=== PATIENT | male | born 1965 ===

== ENCOUNTER 2018-05-13 07:09 | Day surgery (SDC) | payer BC ==
[~2018-05-13] VITALS: Ht 172.7 cm; Wt 72.6 kg
[2018-05-13] MEDS ORDERED: NKM (07:20)
[2018-05-13] MEDS ORDERED: Sodium Chloride 500ML 500 ML IV ONE (07:30)
[2018-05-13 07:40] VITALS: BP 121/71
--- NOTE | 2018-05-13 07:40 | NUR ---
ED Nurse Note:pt. came with right eye retinal detachement, visual acuity done and documented, pt. will have outpatient surgery done today he is NPO blood was sent to labs and given IV fluids
--- NOTE | 2018-05-13 07:47 | Emergency Room Report ---
History of Present Illness General Chief Complaint: Eye Problems Source: Patient Present Illness HPI Patient presents with complaints of right eye discomfort Some change in acuity Patient reports that approximately 2 weeks ago he started noticing the change Denies any acute trauma Denies any pain however there is some irritation to the eye Denies any head injury denies any chest pain or shortness of breath Denies any back or flank pain denies any vomiting denies any headache Allergies: Coded Allergies: No Known Allergies (Unverified , 05/13/18) Patient History Past Medical History: see triage record Pertinent Family History: none Reviewed Nursing Documentation: PMH: Agreed; PSxH: Agreed Nursing Documentation-PM Past Medical History: No Stated History Review of Systems All Other Systems: negative except mentioned in HPI Physical Exam Vital Signs Date Time Temp Pulse Resp B/P (MAP) Pulse Ox O2 Delivery O2 Flow Rate FiO2 05/13/18 07:12 98.1 60 15 121/71 99 Sp02 EP Interpretation: reviewed, normal General Appearance: well appearing, no apparent distress Head: normocephalic, atraumatic Eyes: right eye other - Detached retina; bilateral eye EOMI ENT: hearing grossly normal, normal pharynx Respiratory: lungs clear, no retraction Cardiovascular #1: regular rate, rhythm Gastrointestinal: non tender, soft Musculoskeletal: normal inspection, back normal Neurologic: alert, oriented x3 Skin: normal inspection, normal color Lymphatic: no adenopathy Medical Decision Making Diagnostic Impression: Primary Impression: Retinal detachment ER Course Patient has findings consistent with retinal detachment Case was discussed with the patient's ceo & founder Patient was requested for acute intervention with surgery And process initiated for this Labs Test 05/13/18 07:48 White Blood Count 7.0 K/UL (4.8-10.8) Red Blood Count 5.60 M/UL (4.70-6.10) Hemoglobin 16.4 G/DL (14.2-18.0) Hematocrit 49.0 % (42.0-52.0) Mean Corpuscular Volume 87 FL (80-99) Mean Corpuscular Hemoglobin 29.2 PG (27.0-31.0) Mean Corpuscular Hemoglobin Concent 33.4 G/DL (32.0-36.0) Red Cell Distribution Width 12.2 % (11.6-14.8) Platelet Count 220 K/UL (150-450) Mean Platelet Volume 7.6 FL (6.5-10.1) Neutrophils (%) (Auto) 66.6 % (45.0-75.0) Lymphocytes (%) (Auto) 25.0 % (20.0-45.0) Monocytes (%) (Auto) 6.5 % (1.0-10.0) Eosinophils (%) (Auto) 1.3 % (0.0-3.0) Basophils (%) (Auto) 0.6 % (0.0-2.0) Prothrombin Time 10.5 SEC (9.30-11.50) Prothromb Time International Ratio 1.0 (0.9-1.1) Activated Partial Thromboplast Time 28 SEC (23-33) Sodium Level 139 MMOL/L (136-145) Potassium Level 4.4 MMOL/L (3.5-5.1) Chloride Level 104 MMOL/L (98-107) Carbon Dioxide Level 28 MMOL/L (21-32) Anion Gap 7 mmol/L (5-15) Blood Urea Nitrogen 21 mg/dL (7-18) Creatinine 0.9 MG/DL (0.55-1.30) Estimat Glomerular Filtration Rate > 60 mL/min (>60) Glucose Level 96 MG/DL (74-106) Calcium Level 9.3 MG/DL (8.5-10.1) Total Bilirubin 0.5 MG/DL (0.2-1.0) Aspartate Amino Transf (AST/SGOT) 16 U/L (15-37) Alanine Aminotransferase (ALT/SGPT) 29 U/L (12-78) Alkaline Phosphatase 73 U/L (46-116) Total Creatine Kinase 56 U/L (26-308) Creatine Kinase MB 1.0 NG/ML (0.0-3.6) Creatine Kinase MB Relative Index 1.7 Total Protein 7.8 G/DL (6.4-8.2) Albumin 4.1 G/DL (3.4-5.0) Globulin 3.7 g/dL Albumin/Globulin Ratio 1.1 (1.0-2.7) EKG Diagnostic Results Rate: bradycardiac Rhythm: other ST Segments: no acute changes Rhythm Strip Diag. Results EP Interpretation: yes Rate: 55 Rhythm: no PVC's, no ectopy, other - Bradycardia Last Vital Signs Date Time Temp Pulse Resp B/P (MAP) Pulse Ox O2 Delivery O2 Flow Rate FiO2 05/13/18 07:40 98.1 76 15 121/71 99 Status: improved Disposition: HOME, SELF-CARE Condition: Improved Referrals: NOT CHOSEN IPA/,REFERRING (PCP) Additional Instructions: Patient disposition to the OR and was reported that the patient would have disposition home after intervention, Stephany Weeks DO May 13, 2018 07:47
[2018-05-13] MEDS ORDERED: Lidocaine 2% MPF 5ml Vial INJ ONE (08:04)
[2018-05-13] MEDS ORDERED: Dexamethasone 4mg/ml vial ONE (08:04)
[2018-05-13] MEDS ORDERED: Sterile Water For Inj 1000ml IV ONE (08:04)
[2018-05-13] MEDS ORDERED: LR 1000ml ONE (08:04)
[2018-05-13] MEDS ORDERED: Pred Forte 1% Opth Susp 1ml ONE (08:04)
[2018-05-13] MEDS ORDERED: Atropine Sulfate 0.4mg/ml inj 20ML ONE (08:04)
[2018-05-13] MEDS ORDERED: Maxitrol Opth Oint 3.5gm ONE (08:04)
[2018-05-13] MEDS ORDERED: Povidone-Iodine 5% opth solution ONE (08:04)
[2018-05-13] MEDS ORDERED: BSS 500ml btl ONE (08:04)
[2018-05-13] MEDS ORDERED: BSS 15ml BTL ONE (08:04)
[2018-05-13] MEDS ORDERED: Kenalog-40 1ml Vial ONE (08:04)
[2018-05-13] MEDS ORDERED: Goniotaire 2.5% Opth Soln - 15ml ONE (08:04)
[2018-05-13] MEDS ORDERED: NS Irrig 1000ml ONE (08:04)
[2018-05-13] MEDS ORDERED: Bupivacaine 0.75% 30ml vial INJ ONE (08:04)
[2018-05-13] MEDS ORDERED: Tetracaine 0.5% Opth 4ml Soln ONE (08:04)
[2018-05-13 08:14] LABS: BASOPHILS % (AUTO) 0.6 % (0.0-2.0); EOSINOPHILS % (AUTO) 1.3 % (0.0-3.0); HEMOGLOBIN 16.4 G/DL (14.2-18.0); MEAN CORPUSCULAR VOLUME 87 FL (80-99); MONOCYTES % (AUTO) 6.5 % (1.0-10.0); NEUTROPHILS % (AUTO) 66.6 % (45.0-75.0); PLATELET COUNT 220 K/UL (150-450); RED CELL DISTRIBUTION WIDTH 12.2 % (11.6-14.8)
[2018-05-13 08:25] LABS: ANION GAP 7 mmol/L (5-15); BLOOD UREA NITROGEN 21 mg/dL (7-18); CALCIUM 9.3 MG/DL (8.5-10.1); CARBON DIOXIDE 28 MMOL/L (21-32); CHLORIDE 104 MMOL/L (98-107); CREATININE 0.9 MG/DL (0.55-1.30); POTASSIUM 4.4 MMOL/L (3.5-5.1); SODIUM 139 MMOL/L (136-145)
[2018-05-13 08:40] LABS: ALANINE AMINOTRANSFERASE 29 U/L (12-78); ALBUMIN 4.1 G/DL (3.4-5.0); ALBUMIN/GLOBULIN RATIO 1.1 (1.0-2.7); ALKALINE PHOSPHATASE 73 U/L (46-116); ASPARTATE AMINO TRANSFERASE 16 U/L (15-37); BILIRUBIN,TOTAL 0.5 MG/DL (0.2-1.0); CREATINE KINASE 56 U/L (26-308)
--- NOTE | 2018-05-13 09:09 | NUR ---
ED Nurse Note:pt. is resting condition stable, waiting for surgecal availability
[2018-05-13] MEDS ORDERED: Proparacaine 0.5% Opth Soln 15ml RIGHT EYE ONE (09:15)
[2018-05-13] MEDS ORDERED: Phenylephrine 2.5% Op 2ml Soln RIGHT EYE ONE (09:15)
[2018-05-13] MEDS ORDERED: Tropicamide 1% Opth 15ml Soln RIGHT EYE ONE (09:15)
[2018-05-13 10:00] VITALS: BP 122/71
--- NOTE | 2018-05-13 11:01 | NUR ---
ED Nurse Note:pt. was taken to OR room by transporter condition stable
--- NOTE | 2018-05-13 11:38 | Anethesia Preoperative Eval ---
Anesthesia Pre-op PMH/ROS General Date of Evaluation: May 13, 2018 Anesthesiologist: Lefty ASA Score: ASA 1 - E Mallampati Score Class I : Soft palate, uvula, fauces, pillars visible Class II: Soft palate, uvula, fauces visible Class III: Soft palate, base of uvula visible Class IV: Only hard plate visible Mallampati Classification: Class II Surgeon: Yasmin Diagnosis: Right eye retinal detachment Surgical Procedure: Right eye vitrectomy Anesthesia History: none Family History: no anesthesia problems Allergies: Coded Allergies: No Known Allergies (Unverified , 05/13/18) Medications: see eMAR Patient NPO?: Yes NPO Date: May 13, 2018 NPO Time: 22:00 Past Medical History Cardiovascular: Denies: HTN, CAD, [place], valve dz, arrhythmia, other Pulmonary: Denies: asthma, COPD, ELENITA, other Gastrointestinal/Genitourinary: Denies: GERD, CRI, ESRD, other Neurologic/Psychiatric: Denies: dementia, CVA, depression/anxiety, TIA, other Endocrine: Denies: DM, hypothyroidism, steroids, other HEENT: Denies: cataract (L), cataract (R), glaucoma, [place] (L), [place] (R), other Hematology/Immune: Denies: anemia, DVT, bleeding disorder, other Musculoskeletal/Integumentary: Denies: OA, RA, DJD, DDD, edema, other PSxH Narrative: Denies Anesthesia Pre-op Phys. Exam Physician Exam Last Vital Signs Date Time Temp Pulse Resp B/P (MAP) Pulse Ox O2 Delivery O2 Flow Rate FiO2 05/13/18 10:59 98.1 72 18 122/71 99 Constitutional: NAD Cardiovascular: RRR Respiratory: CTA Airway Exam Mallampati Score: Class II MO: full ROM: full Teeth: intact Anesthesia Pre-op A/P Labs Hematology Test 05/13/18 07:48 White Blood Count 7.0 K/UL (4.8-10.8) Red Blood Count 5.60 M/UL (4.70-6.10) Hemoglobin 16.4 G/DL (14.2-18.0) Hematocrit 49.0 % (42.0-52.0) Mean Corpuscular Volume 87 FL (80-99) Mean Corpuscular Hemoglobin 29.2 PG (27.0-31.0) Mean Corpuscular Hemoglobin Concent 33.4 G/DL (32.0-36.0) Red Cell Distribution Width 12.2 % (11.6-14.8) Platelet Count 220 K/UL (150-450) Mean Platelet Volume 7.6 FL (6.5-10.1) Neutrophils (%) (Auto) 66.6 % (45.0-75.0) Lymphocytes (%) (Auto) 25.0 % (20.0-45.0) Monocytes (%) (Auto) 6.5 % (1.0-10.0) Eosinophils (%) (Auto) 1.3 % (0.0-3.0) Basophils (%) (Auto) 0.6 % (0.0-2.0) Coagulation Test 05/13/18 07:48 Prothrombin Time 10.5 SEC (9.30-11.50) Prothromb Time International Ratio 1.0 (0.9-1.1) Activated Partial Thromboplast Time 28 SEC (23-33) Chemistry Test 05/13/18 07:48 Sodium Level 139 MMOL/L (136-145) Potassium Level 4.4 MMOL/L (3.5-5.1) Chloride Level 104 MMOL/L (98-107) Carbon Dioxide Level 28 MMOL/L (21-32) Anion Gap 7 mmol/L (5-15) Blood Urea Nitrogen 21 mg/dL (7-18) H Creatinine 0.9 MG/DL (0.55-1.30) Estimat Glomerular Filtration Rate > 60 mL/min (>60) Glucose Level 96 MG/DL (74-106) Calcium Level 9.3 MG/DL (8.5-10.1) Total Bilirubin 0.5 MG/DL (0.2-1.0) Aspartate Amino Transf (AST/SGOT) 16 U/L (15-37) Alanine Aminotransferase (ALT/SGPT) 29 U/L (12-78) Alkaline Phosphatase 73 U/L (46-116) Total Creatine Kinase 56 U/L (26-308) Creatine Kinase MB 1.0 NG/ML (0.0-3.6) Creatine Kinase MB Relative Index 1.7 Total Protein 7.8 G/DL (6.4-8.2) Albumin 4.1 G/DL (3.4-5.0) Globulin 3.7 g/dL Albumin/Globulin Ratio 1.1 (1.0-2.7) Studies Pre-op Studies: EKG - sr Risk Assessment & Plan Assessment: ASA IE Plan: MAC Status Change Before Surgery: No Pre-Antibiotics Drug: N/A Genny Rubio MD May 13, 2018 11:38
[2018-05-13] MEDS ORDERED: Propofol 200mg/20ml IV ONE (11:39)
[2018-05-13] MEDS ORDERED: Lidocaine 1% MPF 10mg/ml 5ml ONE (11:39)
[2018-05-13] MEDS ORDERED: fentaNYL 100 mcg/2 mL IV ONE (11:39)
--- NOTE | 2018-05-13 12:26 | Operative Note - PDOC ---
Operative Note Operative Note Pre-op Diagnosis: RRD OD Procedure: PPV/PFO/EL/SF6 OD Post-op Diagnosis: Same Post-op Diagnosis: same as pre-op Anesthesia: local Specimen: none Complications: none Condition: stable Estimated Blood Loss: minimal Drains: none Implant(s) used?: No Indications for Procedure Indications for the procedure: The patients for urgent repair of macula-threatening retinal detachment and presents today for surgery after review of the risks, benefits, alternative and signing informed consent into the medical chart. Description of Procedure Procedure performed: The patient was met in the pre-operative area where informed consent was reviewed. The operative eye was verified, marked and dilated. The patient was transferred to the operative suite, where cardiopulmonary monitoring was established and RB anesthetic was administered without complications. The eye was prepped and draped in sterile ophthalmic fashion. Under microscope visualization the 23 gauge infusion line was placed 4 millimeters inferotemporally. After visualization of the tip in the vitreous cavity, the infusion line was turned on. The superotemporal and superonasal cannulas were placed. Under BIOM visualization, peripheral and core vitrectomy was performed. The traction with the large tear was relieved by vitrectomy; the periphery was shaved. There was inferior cobblestones and some areas of thinning inferonasally. No other tears were noted aside the large tear with detachment superotemporally. Inspection of the periphery revealed no iatrogenic breaks. PFO was infused to reattached the retina and endolaser was applied to surround the tear and additionally to reinforce the IT and ST retina. The PFO was removed and AFE was performed. SF6 20% was infused into the eye. The sclerotomies were sutured. The eye maintained normal intraocular pressure. Subconjunctival vancomycin and dexamethasone were administered. The lid speculum was removed. The eye was cleaned of prep and drape. Atropine drop and Maxitrol ointment was applied. A pressure patch was placed. The patient was turned over to the anesthesia team and transferred in stable condition to the PACU. Chung Hoffman M.D., MD May 13, 2018 12:26
--- NOTE | 2018-05-13 12:26 | Pre-Procedure Note/Attestation ---
Pre-Procedure Note/Attestation Complete Prior to Procedure Planned Procedure: right Procedure Narrative: RRD OD Indications for Procedure Pre-Operative Diagnosis: RRD OD Attestation I attest that I discussed the nature of the procedure; its benefits; risks and complications; and alternatives (and the risks and benefits of such alternatives ), prior to the procedure, with the patient (or the patient's legal associate sales representative). I attest that, if there was a reasonable possibility of needing a blood transfusion, the patient (or the patient's legal associate sales representative) was given the [facility] standardized written summary, pursuant to the Vincent Brad Blood Safety Act ([place] Health and Safety Code # 1645, as amended). I attest that I re-evaluated the patient just prior to the surgery and that there has been no change in the patient's H&P, except as documented below: Chung Hoffman M.D., MD May 13, 2018 12:26
[2018-05-13] MEDS ORDERED: LR 1000ml 1,000 ML IVLG SCH (12:48)
[2018-05-13] MEDS ORDERED: fentaNYL 100 mcg/2 mL IV PRN (13:00)
[2018-05-13] MEDS ORDERED: DiphenhydrAMINE 50mg/ml Inj IVP PRN (13:00)
[2018-05-13 13:54] VITALS: BP 140/88
--- NOTE | 2018-05-13 13:54 | 48 Hour Post Anesthesia Eval ---
Post Anesthesia Evaluation Procedure: Right eye vitrectomy Date of Evaluation: May 13, 2018 Airway: patent Nausea: No Vomiting: No Pain Intensity: 0 Hydration Status: adequate Cardiopulmonary Status: at baseline Mental Status/LOC: patient returned to baseline Post-Anesthesia Complications: 0 Follow-up care needed: ready to discharge Genny Rubio MD May 13, 2018 13:54
--- NOTE | 2018-05-13 13:54 | Immediate Post-Op Evaluation ---
Immediate Post-Op Evalulation Immediate Post-Op Evalulation Procedure: Right eye vitrectomy Date of Evaluation: May 13, 2018 Time of Evaluation: 13:55 IV Fluids: 500 Blood Products: 0 Estimated Blood Loss: min Urinary Output: 0 Blood Pressure Systolic: 140 Blood Pressure Diastolic: 88 Pulse Rate: 59 Respiratory Rate: 17 O2 Sat by Pulse Oximetry: 100 Temperature (Fahrenheit): 98.1 Pain Score (1-10): 0 Nausea: No Vomiting: No Complications 0 Patient Status: awake, reacts, patent, none Hydration Status: adequate Drug: N/a Genny Rubio MD May 13, 2018 13:54
--- NOTE | 2018-05-14 18:13 | Cardiology Report ---
APPROVED REPORT EKG Measurement Heart [id number] Sinus bradycardia Otherwise normal ECG
== END 2018-05-13 15:45 | disposition home or self-care (01) ==
LOC: EMR 07:42 → EDBEDREQSVC 07:49 → EDBEDREQ 07:49 → SUR 08:03
DX: H33.001 Unspecified retinal detachment with retinal break, right eye (principal); R00.1 Bradycardia, unspecified
CPT/HCPCS: 36415; 67108; 80053; 82550; 82553; 85025; 85610; 85730; 93005; 99283; J0461; J1100; J2704; J3010; J3301; J3370; J3490; 94003; 94150